=== PATIENT | male | born 1950 | race Hispanic/Latino ===

== ENCOUNTER 2017-02-27 04:56 | Inpatient (IN) ==
[2017-02-27] MEDS ORDERED: NS 3,000 ML ONE (05:49)
[2017-02-27] MEDS ORDERED: NS 1,000 ML IV ONE ×3 (05:55→07:40)
--- NOTE | 2017-02-27 05:59 | PROVIDER DOCUMENTATION ---
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 He reports a prominent history of gallbladder disease, denies any other major medical problems Abdominal Pain Onset Location: reports: RUQ Pain Radiation: reports: back Quality of Pain: reports: tearing Severity in ED: reports: severe Onset/Duration: reports: 24 hours ago Timing: reports: getting worse Activities at Onset: reports: light activity Modifying Factors: improves with: nothing Dark Stools Present?: reports: none noticed Rectal Bleeding: reports: none Review of Systems - Adult - REVIEW OF SYSTEMS - ADULT Constitutional: reports: see HPI Eyes: reports: no symptoms reported Ears, Nose, Mouth & Throat: reports: no symptoms reported Cardiovascular: reports: see HPI, syncope Respiratory: reports: no symptoms reported Gastrointestinal: reports: see HPI, abdominal pain Genitourinary: reports: no symptoms reported Musculoskeletal: reports: no symptoms reported Integumentary: reports: no symptoms reported Neurological: reports: no symptoms reported Endocrine: reports: no symptoms reported Past History - Adult - PAST MEDICAL HISTORY-ADULT Review of Records: reports: Nursing Assessment Review Physical Exam-General - PHYSICAL EXAM-ADULT Initial Vital Signs Reviewed: Yes - CONSTITUTIONAL General Appearance: alert, moderate distress, other (major language issue with most of history taken via language line) - EYES Eyes: pink conjunctivae - HEAD, EARS, NOSE, MOUTH & THROAT HENMT: normocephalic/atraumatic, moist mucous membranes - NECK Neck: non-tender, supple - RESPIRATORY Respiratory: chest non-tender, lungs clear, normal breath sounds - CARDIOVASCULAR Cardiovascular: no edema, tachycardia - GASTROINTESTINAL (ABDOMEN) Abdominal Exam: distended, guarding, rebound, tenderness, Gillette's sign. negative: normal bowel sounds - MUSCULOSKELETAL Back Exam: no CVA tenderness Extremity: normal range of motion - SKIN Integumentary: normal color, normal turgor - NEUROLOGIC Neurologic: grossly normal Progress - PLAN OF CARE/RESULTS Progress/Plan/Lab Results: Vital Signs - 8 hr 02/27/17 05:29 Temperature 99.3 F Pulse Rate 147 H Respiratory Rate 23 Blood Pressure 105/67 O2 Sat by Pulse Oximetry 96 Orders Category Date Time Status 0.9% Sodium Chloride Inj [Ns] 1,000 ml Med 02/27/17 05:49 Discontinued .ROUTE As Directed Spoke with Dr Ascencio who does not wish to assume care of this critically ill pt . I spoke with Dr Ruelas who does not wish to admit to his service without a definitive diagnosis. US not immediately available so will proceed with CT scan despite serum creat of 1.8 Result Diagrams: 02/27/17 02:30 02/27/17 02:30 - CT/MRI 1 CT Study: Abdomen, Pelvis Impression: Abnormal, See EMR Report (Impacted gallstones and acute cholecystitis) Departure - Departure Date of Disposition Decision: 02/27/17 Time of Disposition Decision: 07:00 DIAGNOSIS: Septic shock, Acute cholecystitis Disposition: ADMITTED INPATIENT 09 Certified Medical Emergency: Emergent Condition: Poor Referrals and Follow-Ups: None,PCP [Primary Care Provider] - - Critical Care Note This patient required my direct & personal management of CC.: Yes Total Time (mins): 120 Critical Care Statement: This patient required my direct personal management to treat or rule out processes, the absence of which, could potentiallly result in sudden, clinically significant life or limb threatening deterioration. Comments: Septic shock, coordination of care Attestation - Physician/ SHAUN Attestation Patient care was provided by Advanced Practice Provider:: No The physician spent face to face time with patient:: Yes Advanced Practice Provider documentation review:: Supervising physician onsite and consulted in the evaluation and care of this patient. The physician did have a face to face encounter with the patient.
[2017-02-27] MEDS ORDERED: ZOSYN 3.375 GM in NS 50 ML IV ONE (06:07)
[2017-02-27 06:24] LABS: BASO% 0.1 % (0.0-0.8); EOS# 0.01 X1000 (0.0-0.7); EOS% 0.1 % (0.0-10.0); HEMATOCRIT 46.8 % (42.0-52.0); HEMOGLOBIN 16.3 g/dL (14.0-18.0); IMM GRAN# 0.35 X1000 (0.0-0.04); IMM GRAN% 2.3 % (0.0-0.5); LYMPH# 0.26 X1000 (1.2-3.4); LYMPH% 1.7 % (20.5-51.1); MANUAL DIFF NEEDED? YES; MCH 32.2 PG (27-31); MCHC 34.8 g/dL (33-37); MCV 92.5 FL (81-99); MONO# 0.21 X1000 (0.11-0.59); MONO% 1.4 % (1.7-9.3); MPV 10.9 FL (7.4-10.4); NEUT% 94.4 % (42.2-75.2); PLT 155 X1000 (130-400); RBC 5.06 XMIL (4.7-6.1)
[2017-02-27 06:30] LABS: INR 1.33; PROTIME 14.2 Seconds (9.2-11.7); PTT 31.3 Seconds (22.0-36.0)
[2017-02-27] MEDS ORDERED: MORPHINE IV ONE (06:32)
[2017-02-27 06:42] LABS: ALBUMIN 3.2 g/dL (3.5-5.0); CALCIUM 8.3 mg/dL (8.8-10.2); POTASSIUM 3.7 mmol/L (3.5-5.1); TOTAL BILIRUBIN 1.33 mg/dL (0.20-1.00); TOTAL PROTEIN 6.9 g/dL (6.3-8.3)
[2017-02-27 06:59] LABS: BANDS 1 % (0-1); LYMPHS 4 % (21-51); MONO 3 % (1-9)
--- NOTE | 2017-02-27 07:27 | Diag Imaging Result Doc PS360 ---
EXAM: CT ABD/PELVIS W/ IV CONT ONLY HISTORY: acute abdomen,, shock TECHNIQUE: CT of the abdomen and pelvis with intravenous contrast with dose reduction (clarity.) COMMENT: There is atelectasis versus pneumonia in both lower lobes particularly the right lower lobe. There is a right pleural effusion. There is mild ascites particularly under the right hemidiaphragm. The gallbladder is markedly distended and thickened with pericholecystic fluid. There appears to be a stone impacted in the neck of the gallbladder or cystic duct measuring up to 7 mm in diameter. There is an additional stone measuring a centimeter in the lower portion of the gallbladder. The enhancement pattern of the liver is somewhat mottled. The portal vein is apparently patent. There is no evidence of abdominal aortic aneurysm and the mesenteric vessels are patent. The renal arteries are patent. The adrenal glands are not enlarged. The spleen is not enlarged. The kidneys contain cortical cysts. There are no solid masses apparent and there is no evidence of hydronephrosis. No significant adenopathy is present. There is gas throughout the colon. The appendix is normal in appearance. Pelvis: There is a small amount of free fluid in the rectovesical pouch. There is no evidence of significant adenopathy. The prostate gland is somewhat enlarged measuring 6.1 x 4.6 cm in the axial plane. There are some spondylotic changes in the lumbar spine. There is no evidence of acute bony disease. IMPRESSION: Acute cholecystitis with impacted stone. Right pleural effusion. Ascites. Bibasilar atelectasis. Electronically signed by Clifford Gresham 02/27/2017 7:25 AM
[2017-02-27] MEDS ORDERED: VANCOMYCIN IV PER PHARMACY MISC SCH (07:45)
[2017-02-27 08:16] LABS: ALLEN TEST YES; BE -5.1 mmoll (-3.0-3.0); BLOOD TYPE ARTERIAL; DRAW SITE L RADIAL; O2(CT) 17.5 mL/dL (15.0-23.0); PCO2(98.6) 31 mmHg (35-45); PO2(98.6) 60 mmHg (60-100); SAMPLE BLOOD; THB 13.7 g/dL (11.5-17.4); pH(98.6) 7.39 (7.35-7.45)
[2017-02-27 08:17] LABS: MODALITY ROOM AIR
[2017-02-27] MEDS ORDERED: ZOFRAN IV PRN (08:41)
[2017-02-27] MEDS: NS 1,000 ML IV SCH ×4 (08:59→23:12)
--- NOTE | 2017-02-27 09:14 | HISTORY AND PHYSICAL ---
CHIEF COMPLAINT: Abdominal pain. 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 He denies vomiting, change in bowel habits, or other systemic complaints. He denies prior episodes similar to this. It is worsened to direct pressure. No relieving factors. ALLERGIES: No known drug allergies. PAST MEDICAL HISTORY: None. PAST SURGICAL HISTORY: None. HOME MEDICATIONS: None. FAMILY HISTORY: He says he has a brother with "the same problem as I have now." SOCIAL HISTORY: He only speaks [place]an or Trinidadian. We used the language line to communicate today. He denies tobacco, alcohol or illicit drug use. 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 His family is in [place] I believe. REVIEW OF SYSTEMS: Ten systems reviewed and negative except as noted above. PHYSICAL EXAMINATION: VITAL SIGNS: Temperature 99.3 degrees, pulse 130s to 140s, respiratory rate 21; it was 26 initially. Blood pressure 90/59, O2 saturation 93%. GENERAL: He is a well-developed, well-nourished male, who is ill-appearing. HEENT: Normocephalic, atraumatic. Extraocular muscles intact. Pupils equal, round, reactive to light. Sclerae anicteric. Moist mucous membranes. NECK: Supple. No thyromegaly. CARDIOVASCULAR: Tachycardic and regular. RESPIRATORY: Bilateral equal breath sounds. No work of breathing. GASTROINTESTINAL: Soft. Nondistended. Hypoactive bowel sounds. No organomegaly or mass. He is very tender in the right upper quadrant. He has a reducible umbilical hernia. EXTREMITIES: No clubbing, cyanosis, or edema. He has palpable radial pulses in both wrists. SKIN: Warm and dry. No rash. MUSCULOSKELETAL: Moves all extremities equally and well. LABORATORY: White blood cell count 14.9, hemoglobin 16, hematocrit 46, platelet count 155,000. INR 1.3. Sodium 135, potassium 3.7, chloride 97, CO2 of 19. BUN 30, creatinine 1.8, glucose 194. Calcium 8.3, total bilirubin 1.3. AST 17, ALT 15, alkaline phosphatase 192. Serum lactate 4.7. pH 7.4, pCO2 of 31, PaO2 of 60, bicarb 20.8, base deficit -5, lactate 2.5. IMAGING: CT of the abdomen and pelvis was reviewed. He has a very distended gallbladder with thickening of the wall and pericholecystic fluid. There are at least 2 stones with 1 that appears to be in the neck. There is some mild ascites under the right hemidiaphragm. There is a small right pleural effusion and what appears to be atelectasis especially in the right lower lobe. ASSESSMENT AND PLAN: A 66-year-old male with acute cholecystitis, possibly early septic shock. We are going to continue the volume resuscitation started in the ER with 1/3 L of normal saline. I will follow his response by placing a Herman catheter and monitoring his urine output. We will check an ABG now and in 2 hours and see what his lactate and base deficit show. He has been given a dose of Zosyn. We will continue this but renal dose it. He will be n.p.o. At this point, I do not think he needs to be intubated. I told him that he likely will require a cholecystectomy this admission once he is more stable; however, the patient really does not want to have surgery here. He says he can get his surgery in [place] for free, but here it will cost him a lot of money. I have told will we will see how he does, but I could not promise him that it would be safe to discharge him. He has bed being arranged in the ICU at this time. cc: Nick Ruelas MD
[2017-02-27] MEDS ORDERED: VANCOMYCIN 2 GM in NS 500 ML IV ONE (09:30)
[2017-02-27] MEDS ORDERED: LEVOPHED 8 MG in D5 1/2 NS 250 ML IV SCH (10:45)
[2017-02-27 10:49] LABS: ALLEN TEST YES; BE -3.9 mmoll (-3.0-3.0); BLOOD TYPE ARTERIAL; DRAW SITE R RADIAL; METHB 1.2 % (0.0-1.5); O2(CT) 18.4 mL/dL (15.0-23.0); PCO2(98.6) 36 mmHg (35-45); PO2(98.6) 72 mmHg (60-100); SAMPLE BLOOD; SAO2 96.3 % (95.0-100.0); pH(98.6) 7.37 (7.35-7.45)
[2017-02-27 10:52] LABS: MODALITY ROOM AIR
[2017-02-27] MEDS: ZOSYN 2.25 GM in NS 50 ML IV SCH ×3 (12:41→23:13)
[2017-02-27] MEDS: DILAUDID IV PRN (19:27)
[2017-02-28] MEDS: DILAUDID IV PRN ×3 (02:19→19:40)
[2017-02-28] MEDS: NS 1,000 ML IV SCH ×2 (04:19→09:03)
[2017-02-28 06:16] LABS: HEMATOCRIT 39.9 % (42.0-52.0); HEMOGLOBIN 13.3 g/dL (14.0-18.0); IMM GRAN# 0.08 X1000 (0.0-0.04); IMM GRAN% 0.4 % (0.0-0.5); LYMPH# 0.52 X1000 (1.2-3.4); LYMPH% 2.3 % (20.5-51.1); MANUAL DIFF NEEDED? YES; MCH 31.7 PG (27-31); MCHC 33.3 g/dL (33-37); MCV 95.2 FL (81-99); MONO# 0.87 X1000 (0.11-0.59); MONO% 3.8 % (1.7-9.3); MPV 11.2 FL (7.4-10.4); NEUT% 93.5 % (42.2-75.2); PLT 144 X1000 (130-400); RBC 4.19 XMIL (4.7-6.1)
[2017-02-28 06:24] LABS: AGAP 9; ALBUMIN 2.3 g/dL (3.5-5.0); ALKALINE PHOSPHATASE 120 U/L (32-122); BUN 21 mg/dL (8-22); CALCIUM 7.2 mg/dL (8.8-10.2); CHLORIDE 110 mmol/L (98-107); COSMO 285; GOT 16 U/L (10-34); GPT 17 U/L (10-44); POTASSIUM 4.1 mmol/L (3.5-5.1); SODIUM 141 mmol/L (136-145); TCO2 22 mmol/L (25-35); TOTAL PROTEIN 5.5 g/dL (6.3-8.3)
[2017-02-28 06:29] LABS: INR 1.19; PROTIME 12.6 Seconds (9.2-11.7)
[2017-02-28 06:55] LABS: BANDS 10 % (0-1); LYMPHS 2 % (21-51); MONO 4 % (1-9)
[2017-02-28] MEDS ORDERED: DILAUDID IV ONE (07:51)
[2017-02-28] MEDS ORDERED: DILAUDID IV PRN (07:53)
[2017-02-28] MEDS ORDERED: DILAUDID ONE (07:58)
[2017-02-28] MEDS: ZOSYN 2.25 GM in NS 50 ML IV SCH (09:02)
--- NOTE | 2017-02-28 10:46 | PROGRESS NOTE ---
DATE: 02/28/2017 SUBJECTIVE: The patient has continued to have right upper quadrant pain. He had a severe episode a couple of hours ago. It has been relieved with Dilaudid. OBJECTIVE: Vital signs: He is afebrile. His pulse is in the 90s. Respiratory rate 21, blood pressure 128/78, O2 saturation 98%. General: He is alert and oriented x3. No acute distress. CV: Tachycardic and regular. Respiratory: Bilateral equal breath sounds. No work of breathing. GI: Somewhat firm in the upper abdomen. Nondistended. He is somewhat tender to palpation, although I think the patient is being stoic. LABORATORY: White blood cell count 22.8, hemoglobin 13, hematocrit 39, platelet count 144,000. INR 1.2. PTT 34. Sodium 141, potassium 4.1, chloride 110, CO2 22, BUN 21, creatinine 1.0, glucose 111, AST 16, ALT 17, total bilirubin 0.7, alkaline phosphatase 120, albumin 2.3. Blood culture data shows gram-negative rods in 2/2 cultures. ASSESSMENT AND PLAN: This is a 66-year-old male with acute cholecystitis and gram-negative bacteremia. He remains quite ill. However, he has weaned off of Levophed and has had stable blood pressure throughout the night and this morning. He is making adequate urine at 1500 mL since admission. I think he is hemodynamically stable now and I have spent the better part of an hour on the phone with him and an developmental writing instructor, strongly recommending cholecystectomy today. I have gone into detail about the risks and benefits of delaying surgery versus the surgery itself. The expected recovery and possible complications. We have discussed the risks of bleeding, infection, injury to surrounding organs such as the bile duct or intestines, the risks of delaying surgery such as worsening sepsis, gallbladder rupture, and a high mortality associated with that. The patient remains hesitant to commit as he lives in [facility], his family is in [place], but I can tell he is seriously considering this. He wants to talk it over with his and will get back to me this morning. cc: Nick Ruelas MD
[2017-02-28] MEDS ORDERED: HURRICAINE SPRAY (DOSE) ONE (12:30)
[2017-02-28] MEDS ORDERED: ROBINUL ONE (12:33)
[2017-02-28] MEDS ORDERED: QUELICIN (DOSE) ONE ×2 (12:33→12:57)
[2017-02-28] MEDS ORDERED: ZEMURON ONE ×3 (12:33→15:08)
[2017-02-28] MEDS ORDERED: XYLOCAINE-MPF 2% ONE (12:33)
[2017-02-28] MEDS ORDERED: NEO-SYNEPHRINE ONE (12:33)
[2017-02-28] MEDS ORDERED: SODIUM CHLORIDE 0.9% 20 ML ONE (12:33)
[2017-02-28] MEDS ORDERED: NEOSTIGMINE ONE (12:33)
[2017-02-28] MEDS ORDERED: FENTANYL ONE (12:34)
[2017-02-28] MEDS ORDERED: DIPRIVAN 1% ONE (12:34)
[2017-02-28] MEDS ORDERED: SODIUM CHLORIDE 0.9% ONE (12:58)
[2017-02-28] MEDS ORDERED: LR 1,000 ML ONE (12:58)
[2017-02-28] MEDS ORDERED: SENSORCAINE 0.5%-EPI 1:200,000 ONE (13:03)
[2017-02-28] MEDS ORDERED: ZOFRAN ONE (14:13)
--- NOTE | 2017-02-28 14:43 | Diag Imaging Result Doc PS360 ---
EXAM: OPERATIVE CHOLANGIOGRAM HISTORY: GB DISEASE TECHNIQUE: Intraoperative cholangiogram, three views COMMENT: There is no evidence of retained stones in the common hepatic or common bile ducts. There is contrast entering the duodenum. IMPRESSION: No evidence of retained stones. Electronically signed by Clifford Gresham 02/28/2017 2:41 PM
[2017-02-28] MEDS ORDERED: VANCOMYCIN 1,650 MG in NS 250 ML IV SCH (15:00)
[2017-02-28] MEDS ORDERED: MORPHINE ONE (15:12)
[2017-02-28] MEDS: ZOSYN 3.375 GM in NS 50 ML IV SCH ×2 (15:15→20:08)
[2017-02-28] MEDS: MORPHINE ONE ×2 (16:57→17:08)
--- NOTE | 2017-02-28 17:41 | OPERATIVE NOTE ---
PROCEDURE DATE: 02/28/2017 PREOPERATIVE DIAGNOSIS: 1. Acute cholecystitis. 2. Umbilical hernia. POSTOP DIAGNOSIS: 1. Acute cholecystitis. 2. Umbilical hernia. PROCEDURE: 1. Laparoscopic converted to open cholecystectomy with operative cholangiogram. 2. Open repair of umbilical hernia. SURGEON: Nick Ruelas MD. ANESTHESIA: General. ESTIMATED BLOOD LOSS: 700 mL. COMPLICATIONS: Liver laceration. DRAINS: 1 #19 Baljinder. FINDINGS: The gallbladder was very inflamed and ischemic appearing and in fact had an area of gangrene and perforation. The cholangiogram revealed normal proximal hepatic radicles and distal bile duct. There was flow of contrast into the duodenum. There were no filling defects or stenoses. TECHNIQUE: He was brought to the operating room and placed supine on the table. General anesthesia was induced. He was prepped and draped in usual sterile fashion. 0.25% Marcaine with epinephrine was used to anesthetize our incision. I made a curvilinear incision above the umbilicus. The umbilical stalk was dissected free from the overlying skin. The hernia sac was then excised with cautery. A 0 Vicryl was placed on both sides of the fascial defect. The camera and trocar were placed into the peritoneal cavity under direct vision with the Synthelis device. Pneumoperitoneum was established. The camera was inserted. There was no evidence of injury to underlying structures. He was placed in reverse Trendelenburg and left rotation. Three 5 mm incision and ports were placed across the epigastric right upper quadrant below the costal margin per usual routine. The omentum was adherent to the gallbladder, liver and anterior abdominal wall. Bluntly I was able to sweep the omentum down away from the gallbladder. The gallbladder was also adherent to the anterior abdominal wall. There was an area of necrotic wall and as I swept the gallbladder away from the abdominal wall the dome of the gallbladder was so thin it ruptured and there was some spillage of bile. The gallbladder was quite hyperemic. It was acutely inflamed and really pretty ischemic. I was able to grasp the gallbladder with a bulldog clamp and lift it up superiorly. We also made an 11 mm incision in the right midabdomen and brought in a fan retractor to help hold down the omentum so we could see the infundibulum and triangle of Calot. I was able to dissect the fatty tissue away from the triangle of Calot bluntly with the suction tip and then with the [place] forceps I began to identify the critical view. The gallbladder liver junction was seen. There were only 2 structures entering the gallbladder the cystic duct and cystic artery. They were both entering the gallbladder. A clip was placed on the distal cystic duct. A ductotomy was made proximal to this with scissors. A 14-gauge Angiocath was brought through the right upper quadrant. A Taut cholangiogram catheter was brought through this into the cystic duct and held in place with a clip. The cholangiogram was performed with findings as noted above. The clip, catheter, and Angiocath were then removed. Two clips were placed on proximal cystic duct and it was divided distal to these 2 with scissors. The cystic artery was then dissected out the same fashion. It was clipped proximally and distally and incised between scissors. I then began taking the gallbladder off the liver bed. It was very difficult to find the plane between the gallbladder wall posteriorly and the liver. The gallbladder tore. There was some unavoidable bleeding from the liver bed as the capsule of the liver was so densely adherent to the posterior wall of the gallbladder. The bleeding was fairly prominent and persistent. I attempted to bring in a Ray-Thom gauze and hold some pressure over the edge of the bleeding areas but it continued to bleed and I eventually decided it was time to convert to an open case for control of the bleeding. We desufflated the abdomen and removed the ports. I made a right upper quadrant oblique incision connecting our laparoscopic incisions. This was carried down through the subcutaneous tissue with cautery. The muscle and peritoneum were opened with cautery protecting the underlying bowel. Unfortunately the liver was still quite high up under the rib cage and difficult to see. The edges of the liver were enveloping around the gallbladder kind of like a taco and so it was still difficult. As I struggled to gain good exposure, I made a small laceration in the right lobe of the liver bluntly with my finger. At this point, I was able to just bluntly dissect the rest of the gallbladder off of the liver bed and it was removed. I then placed some Surgicel over the bleeding points within the gallbladder bed and on the dome of the liver and then sandwiched the liver between laparotomy pads and held pressure for about 10 minutes. After this was done, I carefully removed the laparotomy pads and the Surgicel. There was no signs of any further bleeding. I could see our cystic duct and cystic artery clips. They were still intact. There is no signs of any bile leakage. I irrigated with warm saline in Morison pouch and up over the dome of the liver and along the right pericolic gutter. We suctioned this out. There was no signs of any remaining bile or any purulent areas. Again I felt like there was good hemostasis. I brought in a 19 Baljinder drain through a separate stab incision and laid it in Morison pouch. I anchored it to the skin with 3-0 nylon. I then closed the incision in layers with a #1 Vicryl for the peritoneum and a #1 Maxon in 2 directions for the muscle. I then repaired the umbilical hernia. I removed the prior Vicryl sutures and closed the fascia primarily with interrupted 2-0 Prolene. The skin was closed with skin clips. He was awakened in stable condition and transferred back to the ICU. cc: Nick Ruelas MD
[2017-02-28 18:06] LABS: HEMATOCRIT 39.6 % (42.0-52.0); HEMOGLOBIN 13.3 g/dL (14.0-18.0)
[2017-02-28] MEDS: D5 LR 1,000 ML IV SCH ×2 (18:06→22:57)
[2017-03-01] MEDS: ZOSYN 3.375 GM in NS 50 ML IV SCH ×4 (02:31→22:48)
[2017-03-01] MEDS: D5 LR 1,000 ML IV SCH ×2 (05:45→12:22)
[2017-03-01] MEDS ORDERED: NS 50 ML ONE (07:28)
[2017-03-01] MEDS: DILAUDID IV PRN (07:59)
--- NOTE | 2017-03-01 08:21 | EKG Report ---
Test Performed on : 02/27/2017 04:52:17 AM Test Reason : No Order in [employer] Blood Pressure : / mmHG Vent. Rate : 158 BPM Atrial Rate : 159 BPM P-R Int : 122 ms QRS Dur : 076 ms QT Int : 248 ms P-R-T Axes : 042 114 037 degrees QTc Int : 402 ms Sinus tachycardia. Right axis deviation Abnormal ECG No previous ECGs available Unconfirmed Result
[2017-03-01 08:31] LABS: BASO% 0.1 % (0.0-0.8); HEMATOCRIT 35.5 % (42.0-52.0); HEMOGLOBIN 11.8 g/dL (14.0-18.0); IMM GRAN# 0.04 X1000 (0.0-0.04); IMM GRAN% 0.3 % (0.0-0.5); LYMPH# 0.55 X1000 (1.2-3.4); LYMPH% 4.2 % (20.5-51.1); MANUAL DIFF NEEDED? YES; MCH 32.2 PG (27-31); MCHC 33.2 g/dL (33-37); MONO# 0.62 X1000 (0.11-0.59); MONO% 4.7 % (1.7-9.3); MPV 10.5 FL (7.4-10.4); NEUT% 90.7 % (42.2-75.2); PLT 116 X1000 (130-400); RBC 3.66 XMIL (4.7-6.1)
[2017-03-01 08:35] LABS: LYMPHS 10 % (21-51)
[2017-03-01 09:01] LABS: AGAP 9; BUN 18 mg/dL (8-22); CHLORIDE 108 mmol/L (98-107); COSMO 293; POTASSIUM 4.2 mmol/L (3.5-5.1); SODIUM 143 mmol/L (136-145); TCO2 26 mmol/L (25-35)
[2017-03-01] MEDS ORDERED: DILAUDID IV PRN (16:57)
[2017-03-01] MEDS: D5 1/2 NS + KCL 20 MEQ 1,000 ML IV SCH (17:18)
[2017-03-01] MEDS: COLACE PO SCH (22:49)
[2017-03-02] MEDS: NORCO-10 PO PRN (04:48)
[2017-03-02] MEDS: ZOSYN 3.375 GM in NS 50 ML IV SCH ×4 (04:48→23:38)
[2017-03-02 06:39] LABS: EOS# 0.18 X1000 (0.0-0.7); EOS% 1.4 % (0.0-10.0); HEMOGLOBIN 10.6 g/dL (14.0-18.0); IMM GRAN# 0.05 X1000 (0.0-0.04); IMM GRAN% 0.4 % (0.0-0.5); LYMPH# 0.75 X1000 (1.2-3.4); MANUAL DIFF NEEDED? YES; MCH 31.6 PG (27-31); MCHC 33.1 g/dL (33-37); MCV 95.5 FL (81-99); MONO# 0.74 X1000 (0.11-0.59); MONO% 5.9 % (1.7-9.3); MPV 10.4 FL (7.4-10.4); NEUT% 86.3 % (42.2-75.2); PLT 119 X1000 (130-400); RBC 3.35 XMIL (4.7-6.1)
[2017-03-02 06:45] LABS: AGAP 7; BUN 13 mg/dL (8-22); CALCIUM 7.8 mg/dL (8.8-10.2); CHLORIDE 104 mmol/L (98-107); COSMO 287; POTASSIUM 3.4 mmol/L (3.5-5.1); SODIUM 143 mmol/L (136-145); TCO2 32 mmol/L (25-35)
[2017-03-02 07:45] LABS: BANDS 4 % (0-1); LYMPHS 8 % (21-51); MONO 4 % (1-9)
[2017-03-02] MEDS: D5 1/2 NS + KCL 20 MEQ 1,000 ML IV SCH ×2 (07:48→09:13)
[2017-03-02] MEDS: COLACE PO SCH ×2 (09:12→23:38)
[2017-03-02] MEDS ORDERED: LASIX IV ONE (14:43)
--- NOTE | 2017-03-02 15:13 | PROGRESS NOTE ---
DATE: 03/02/2017 SUBJECTIVE: The patient denies severe pain, nausea or vomiting. He has had a bowel movement. He is hungry. He is moving around better now. OBJECTIVE: Vital signs: He is afebrile. Vital signs are stable. Urine output 1670 mL. ALYSHA drain has put out 60 mL and is serosanguineous. There is no bile in it. Overall he is over 8 L positive the last 3 days. General: He is alert and oriented x4. No acute distress. Gastrointestinal: Soft, nondistended, appropriately tender. His incisional dressing is dry. He has good bowel sounds. CV: Regular rate and rhythm. Respiratory: No work of breathing. LABORATORY: White blood cell count 12.5, hemoglobin 10.6, hematocrit 32, platelet count 119,000. Electrolytes reviewed and notable for potassium at 3.4, otherwise unremarkable. ASSESSMENT AND PLAN: 66-year-old male status post open cholecystectomy for gangrene and perforation of the gallbladder. He is recovering nicely. We will continue on Zosyn today. I plan to remove his ALYSHA drain tomorrow. His Herman catheter is out. We are going to give him a dose of Lasix for some overall edema I am going to advance him to a regular diet and I am looking at discharging him in a couple of days. He has a ride back to [place] through his employer. cc: Nick Ruelas MD
[2017-03-02] MEDS: KLOR-CON PO SCH (18:25)
[2017-03-03] MEDS: ZOSYN 3.375 GM in NS 50 ML IV SCH ×2 (04:37→10:01)
[2017-03-03] MEDS: NORCO-10 PO PRN (09:01)
--- NOTE | 2017-03-03 09:28 | PROGRESS NOTE ---
DATE: 03/01/2017 SUBJECTIVE: The patient says he has had a few episodes of intense pain on the right side. He denies nausea or vomiting. He has passed gas once. He is hungry. OBJECTIVE: Vital Signs: Temperature 98 degrees, pulse 88, respirations 18, blood pressure 152/84. O2 saturation 98%. General: He is alert orient x3. No acute distress. CV: Regular rate and rhythm. Respiratory: Bilateral breath sounds. No work of breathing. GI: Soft, nondistended. Appropriately tender. Incisional dressings are intact with some slight serosanguineous drainage. The ALYSHA drain is somewhat bloody. The output recorded is only 90 mL since surgery. : Urine output 1865 yesterday 470 so far today as of the 1st shift. LABORATORY: White blood cell count 13, 000, hemoglobin 11.8, hematocrit 35.5, platelet count 116,000. Electrolytes reviewed and unremarkable. ASSESSMENT/PLAN: A 66-year-old male status post open cholecystectomy. He had acute blood loss anemia. Hemodynamically he is stable. He will remain on Zosyn for the gangrenous gallbladder which had ruptured during surgery. We are going to start a clear liquid diet. Increase his activity. Work with him on incentive spirometer. I will add [place] for pain medicine and transfer him to the floor. The social and political studies professor is on board to assist with him eventually getting back home to [place]. cc: Nick Ruelas MD
[2017-03-03] MEDS: COLACE PO SCH ×2 (10:02→23:44)
[2017-03-03] MEDS: KLOR-CON PO SCH (10:02)
--- NOTE | 2017-03-03 12:31 | PROGRESS NOTE ---
DATE: 03/03/2017 SUBJECTIVE: Patient denies nausea or vomiting. He is eating, and has had a bowel movement. He did have an episode of bad pain this morning, but is better now. OBJECTIVE: Vital signs: He is afebrile. Vital signs are stable. General: He is alert and oriented x4. No acute distress. He is sitting up in a chair. CV: Regular rate and rhythm. Respiratory: Bilateral equal breath sounds. No work of breathing. GI: Soft, appropriately tender, and nondistended. He has good bowel sounds. Skin: His incision is clean, dry, and intact without erythema. The drain is serosanguineous without bile. : Urine output 6400 mL yesterday. ASSESSMENT/PLAN: A 66-year-old male postoperative day 3, open cholecystectomy with drainage of a perforated gallbladder. He is improving significantly. We are going to remove his Herman catheter and discontinue his IV line, as his arms her puffy and swollen. He is making good urine output and tolerating a regular diet. Tomorrow, I will plan to remove the ALYSHA drain and will check blood cultures today if those are negative, then he can go home tomorrow on Levaquin for 7 more days. His is coming apparently from [place] and hopefully, I can meet her tomorrow. cc: Nick Ruelas MD
[2017-03-03] MEDS: LEVAQUIN PO SCH (13:28)
[2017-03-04] MEDS: LEVAQUIN PO SCH (11:19)
[2017-03-04] MEDS: KLOR-CON PO SCH (11:19)
[2017-03-04] MEDS: COLACE PO SCH ×3 (11:19→22:12)
[2017-03-04] MEDS: NORCO-10 PO PRN (11:25)
--- NOTE | 2017-03-04 15:29 | PROGRESS NOTE ---
DATE: 03/04/2017 SUBJECTIVE: He is feeling better. No significant pain. Nausea or vomiting. He is tolerating a diet. He has had a bowel movement. He is voiding without his Herman. OBJECTIVE: Vital Signs: His temperature maximum is 99.7, current temperature 99. Vital signs are otherwise stable and within normal limits. General: He is alert and oriented x4. No acute distress. Respiratory: No work of breathing. Gastrointestinal: Soft, minimally tender. Incisions are clean, dry, and intact. His ALYSHA drain is serosanguineous without any bile. He has good bowel sounds. LABORATORY: None today. ASSESSMENT AND PLAN: A 66-year-old male postoperative day 4 open cholecystectomy for acute gangrenous cholecystitis. I am going to take his drain out today. He has been converted to Levaquin by mouth. He also had bacteremia on admission, specifically E. coli and Proteus mirabilis, both sensitive to Levaquin. His blood cultures were redrawn yesterday. If they are negative tomorrow, then we will discharge home. He will follow up with his primary care physician in [place] next week for a wound check and skin clip removal. I have spoken with the patient's about his postop instructions and they are understanding. cc: Nick Ruelas MD
[2017-03-05] MEDS: KLOR-CON PO SCH (09:16)
[2017-03-05] MEDS: COLACE PO SCH (09:17)
[2017-03-05] MEDS: LEVAQUIN PO SCH (09:17)
--- NOTE | 2017-03-05 15:28 | DISCHARGE SUMMARY ---
ADMISSION DATE: 02/27/2017 DISCHARGE DATE: 03/05/2017 ADMITTING DIAGNOSES: 1. Acute cholecystitis. 2. Septic shock. DISCHARGE DIAGNOSES: 1. Acute cholecystitis. 2. Septic shock. 3. Gram-negative krista bacteremia. 4. Acute blood loss anemia. PROCEDURES: Laparoscopic converted to open cholecystectomy. 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 He was found to be quite ill in the emergency room. He was hypotensive with a metabolic acidosis, leukocytosis, severe tenderness in his right upper abdomen and a CT scan showing acute cholecystitis. He was admitted for broad-spectrum antibiotics and resuscitation and future cholecystectomy. HOSPITAL COURSE: He was given multiple liters of fluids during the 1st few hours of admission. He was also started on Levophed initially, this was eventually weaned off the next day. He was started on Zosyn and vancomycin. On hospital day #2 his blood pressure was more stable. He was making adequate urine and he was safe for his cholecystectomy. For full details of the operation, please see the dictated report. Postoperatively, he went back to the ICU for further observation. Overnight, he did well. He was hemodynamically stable. Vital signs were good. He had good urine output. His ALYSHA drain had serosanguineous fluid. There was no bile in it. His laboratory parameters improved with white blood cell count decreasing to 13,000 on postoperative day 1 and 12,000 postoperative day 2. His blood count slowly trended down but stabilized from postoperative day 1-2. He was transferred to the floor and he began passing gas and his diet was advanced. At the time of discharge on 03/05/2017, he is tolerating a soft diet. He is ambulating. He is voiding on his own. His pain is manageable by oral hydrocodone. His blood cultures 2 days ago were repeated and this time they are negative. Before they were positive for E. coli and Proteus mirabilis on the day of admission. These were both sensitive to Levaquin. He has been switched to Levaquin. His drain has been removed and he is discharged in stable condition on 03/05/2017, after my exam on the same day. DISCHARGE INSTRUCTIONS: He should continue Levaquin once daily for 5 more days. He should avoid heavy lifting more than 15 pounds for the next 2-4 weeks. He can advance his diet as tolerated. He may shower. He [place] return to the [place] or [place] for any severe new pain, vomiting, fever, chills or other systemic complaints. His skin clips should be removed on postoperative day 10-12, which would be March 10 to . I instructed them to follow up with a general practitioner or surgeon at his home in [place]. He and his are planning to leave for [place] by plane tomorrow. He was instructed to get up and walk around every hour or so. Our social worker psychiatric is working on helping him find prescriptions from a local pharmacy for his antibiotic and hydrocodone. DISCHARGE MEDICATIONS: [place] 10 mg 1 p.o. q.4 hours p.r.n. pain #25, Levaquin 750 mg p.o. daily x5 days. cc: Nick Ruelas MD
[2017-03-05 16:34] VITALS: BP 140/76
== END 2017-03-05 20:00 | disposition home or self-care (01) ==
LOC: ED 04:56 → ICU 09:14 → 4N 03-01 18:57
PROVIDERS: ADMIT Surgery; ATTEND Surgery